=== PATIENT | male | born 1975 | race Caucasian/White ===

== ENCOUNTER 2024-05-04 15:23 | Emergency (ER) | payer MEDICARE, MEDICAID, SELFPAY ==
[2024-05-04 16:00] VITALS: BP 169/77; PULSE 66; RESP 20; TEMP 36.8; O2SAT 95; BMI 38.2
[2024-05-04 19:01] VITALS: BP 154/77; PULSE 78; RESP 16; TEMP 37.1; O2SAT 98
== END 2024-05-04 19:00 | disposition left against medical advice (07) ==
PROVIDERS: Emergency Provider Emergency Medicine
CPT/HCPCS: 99281